=== PATIENT | male | born 1945 | race Caucasian/White ===

== ENCOUNTER 2020-01-06 09:07 | Emergency (ER) | payer MEDICARE, OTHER ==
[~2020-01-06] VITALS: Ht 170.2 cm; Wt 75.7 kg
--- NOTE | 2020-01-06 09:15 | NUR ---
BIB FRIEND C/O SOB STARTED YESTERDAY, -FEVER. PATIENT ASSISTED TO ROOM, CHANGED INTO GOWN, ATTACHED TO THE SURGERY AID. IV LINE ESTABLISHED, BLOOD DRAWN SENT TO LAB. PATIENT WAS ABLE TO GIVE URINE AND SENT.
--- NOTE | 2020-01-06 09:42 | NUR ---
CALLED INTER[employer] MEDIA PROJECT MANAGER CARDIO CHRISTINE AND TEXTED EKG AT 0945.
[2020-01-06] MEDS ORDERED: ASPIRIN 325 MG TABLET ONE (09:43)
[2020-01-06 09:47] LABS: BASOPHILS % (AUTO) 0.2 % (0.0-2.0); EOSINOPHILS % (AUTO) 0.1 % (0.0-6.0); HEMATOCRIT 41 % (39-51); HEMOGLOBIN 13.6 g/dL (13.5-17.5); LYMPHOCYTES # (AUTO) 2.6 /CMM (0.8-4.8); LYMPHOCYTES % (AUTO) 17.2 % (20.0-44.0); MEAN CORPUSCULAR HGB CONC 33 g/dl (31.0-36.0); MEAN CORPUSCULAR VOLUME 90 fL (80-96); MONOCYTES % (AUTO) 6.5 % (2.0-12.0); NEUTROPHILS # (AUTO) 11.4 /CMM (1.8-8.9); PLATELET COUNT (AUTO) 578 /CMM (150-450); RED BLOOD CELL COUNT(AUTO) 4.54 MIL/uL (4.5-6.0)
--- NOTE | 2020-01-06 09:48 | NUR ---
PATIENT DENIES CHEST PAIN AT THIS TIME. PLACED ON O2 AT 2LPM FOR COMFORT.
[2020-01-06 09:49] LABS: APPEARANCE,URINE Clear (CLEAR); BILIRUBIN,URINE SMALL (NEGATIVE); BLOOD, URINE Negative Ery/uL (NEGATIVE); COLOR,URINE Yellow (YELLOW); KETONES,URINE Negative (NEGATIVE); LEUKOCYTE ESTERASE ,URINE Negative (NEGATIVE); NITRITE, URINE Negative (NEGATIVE); PROTEIN,URINE Negative (NEGATIVE); UGLUCOSE Negative (NEGATIVE)
--- NOTE | 2020-01-06 09:50 | NUR ---
[facility] CALLED FOR CODE STEMI,SPOKE WITH RAFFI,MILAN AND EKG SENT TO [phone] REQUESTED
[2020-01-06 09:56] LABS: BACTERIA,URINE Rare /HPF (None Seen); RBC,URINE NONE SEEN /HPF (0-2); SQUAMOUS EPITHELIAL CELL,UR Few /HPF (None Seen); WBC,URINE NONE SEEN /HPF (0-3)
[2020-01-06 10:10] LABS: ALBUMIN 3.2 g/dL (3.4-5.0); ALKALINE PHOSPHATASE 107 U/L (46-116); ASPARTATE AMINOTRANSFERASE 44 U/L (15-37); B-TYPE NATRIURETIC PEPTIDE 30745 PG/ML (0-125); BILIRUBIN,TOTAL 2.7 mg/dL (0.2-1.0); CALCIUM, SERUM 8.8 mg/dL (8.5-10.1); CARBON DIOXIDE 24 mmol/L (21-32); CHLORIDE 89 mmol/L (98-107); CREATININE 2.8 mg/dL (0.6-1.3); GLUCOSE 212 mg/dL (74-106); POTASSIUM 3.3 mmol/L (3.5-5.1); SODIUM SERUM 129 mmol/L (136-145); TOTAL PROTEIN, SERUM 7.8 g/dL (6.4-8.2)
[2020-01-06 10:12] LABS: UREA NITROGEN, BLOOD 99 mg/dL (7-18)
--- NOTE | 2020-01-06 10:17 | NUR ---
CALL BACK FROM [facility], DR MENDES TALKED TO DR BA AND REFUSED TRANSFER
--- NOTE | 2020-01-06 10:20 | NUR ---
[facility] ER CALLED,DR LARRY SPOKE WITH DR BA FOR POSSIBLE TX
[2020-01-06 10:23] LABS: CREATINE KINASE, TOTAL 87 U/L (39-308); FERRITIN 441 ng/mL (8-388)
[2020-01-06] MEDS ORDERED: HEPARIN SODIUM, PORCINE 5000 UNITS/1 ML VIAL ONE (10:26)
[2020-01-06] MEDS ORDERED: HEPARIN SODIUM, PORCINE 5000 UNITS/1 ML VIAL IV ONE (10:30)
[2020-01-06] MEDS ORDERED: ASPIRIN 325 MG TABLET PO ONE (10:30)
--- NOTE | 2020-01-06 10:35 | NUR ---
Fitz vogel in EDM - 01/06/20 at 1237 by LAUREN T'S A STEMI, SUGGESTED TO HAVE ADMISSIONS ASSISTANT CALLED.CALL BACK FROM DR LARRY, ACCEPTED TX BUT SAID THAT THEYT DON'T THINK
[2020-01-06] MEDS ORDERED: FUROSEMIDE 20 MG/2 ML VIAL ONE (10:36)
[2020-01-06] MEDS ORDERED: HEPARIN INFUSION/D5W 500 ML IV ONE (10:36)
--- NOTE | 2020-01-06 10:40 | NUR ---
SPOKE WITH GIUSEPPE NIELSEN SAID THAT ER MD CAN'T ACCEPT AN ER TRANSFER SINCE PATIENT IS NOT A STEMI, DR BA INFORMED
[2020-01-06 10:41] LABS: ALANINE AMINOTRANSFERASE 61 U/L (12-78)
[2020-01-06] MEDS ORDERED: HYDR25TA4 PO (10:49)
[2020-01-06] MEDS ORDERED: AMLO10TA7 PO (10:49)
[2020-01-06] MEDS ORDERED: ALPR0.5T8 PO (10:49)
[2020-01-06 10:52] LABS: D-DIMER 2.93 mg/L(FEU (0.17-0.50)
[2020-01-06] MEDS ORDERED: LEVOFLOXACIN 500 MG /D5W 100ML 100 ML IV ONE (10:56)
[2020-01-06] MEDS ORDERED: LEVOFLOXACIN 500 MG /D5W 100ML 500 MG/100 ML PIGGYBACK IV ONE (11:00)
[2020-01-06] MEDS ORDERED: FUROSEMIDE 20 MG/2 ML VIAL IV ONE ×2 (11:00)
[2020-01-06] MEDS ORDERED: HEPARIN INFUSION/D5W 500 ML IV PRN (11:00)
--- NOTE | 2020-01-06 11:11 | NUR ---
DR BA SPEAKING WITH DR REY
[2020-01-06 11:24] LABS: ABG BASE EXCESS 0.3 mmol/L; ABG OXYGEN SATURATION 96.2 % (92.0-98.5); ABG PCO2 26.8 mmHg (35.0-45.0); ABG PH 7.527 (7.350-7.450); ABG PO2 91.1 mmHg (75.0-100.0); AaDO2 76.9 mmHg; COHb 0.9 % (0.5-1.5); MetHb 0.3 % (0.0-1.5); SITE, ABG Right Radial
--- NOTE | 2020-01-06 12:23 | NUR ---
DR. REY AND DR. KING AT BEDSIDE FOR EVALUATION. PATIENT RESTING, VITALS STABLE, DENIES CHEST PAIN.
[2020-01-06] MEDS ORDERED: ALPRAZOLAM 0.5 MG TABLET PO PRN (12:30)
--- NOTE | 2020-01-06 12:38 | NUR ---
ROOM GIVEN FOR PT 252.
[2020-01-06 12:52] LABS: BILIRUBIN,DIRECT 0.9 mg/dL (0.0-0.2)
--- NOTE | 2020-01-06 13:00 | NUR ---
CALLED [facility] TO HELP WITH TRANSFER PT
--- NOTE | 2020-01-06 13:00 | NUR ---
dr walls called regarding assistance with transfer since patient needs cardiothoracic surgeon
--- NOTE | 2020-01-06 13:00 | NUR ---
PATIENT'S EXAMINED BY DR. KING. Addendum: 01/06/20 at 1429 by ROALCANCES VERIFIED WITH DR. KING IF HEPARIN STILL NEEDS TO BE CONTINUED. PER MD, CONTINUE HEPARIN AT THIS TIME, UNTIL FURTHER ORDER.
--- NOTE | 2020-01-06 13:02 | NUR ---
LACTIC ACID 2.8
[2020-01-06] MEDS ORDERED: FUROSEMIDE 40 MG/4 ML VIAL ONE (13:08)
--- NOTE | 2020-01-06 13:15 | NUR ---
DR. KING WANTS TO TRANSFER TO [facility] AND ASKED TO SPEAK WITH DR. REY. AFTER WHICH DOCTOR CANDIDO DICIDED THAT THE PATIENT WILL REMAIN WITH [facility] AND NOT BE TRANSFER TO [facility].
--- NOTE | 2020-01-06 13:25 | NUR ---
JACQUE FROM [facility],TEL. [phone] AND FAX# [phone]. WANTS FACESHEETY FAXED BUT I TOLD HER THAT DR REY WANTS TO TAKE CARE OF THE TRANSFER SINCE HE IS A [place] PATIENT.
[2020-01-06] MEDS ORDERED: LORAZEPAM INJ 2 MG/ML VIAL IV ONE (13:30)
[2020-01-06] MEDS ORDERED: FUROSEMIDE 40 MG/4 ML VIAL IV ONE (13:30)
[2020-01-06] MEDS ORDERED: LORAZEPAM INJ 2 MG/ML VIAL ONE (13:34)
--- NOTE | 2020-01-06 13:45 | NUR ---
Patient resting, given ice chips, per Dr. Xie, ok to have ice chips at this time. Patient still denies chest pain, vitals stable. Dr. Mao re-evaluated the patient.
--- NOTE | 2020-01-06 13:49 | NUR ---
[facility] INVOICE MACHINE OPERATOR KATELYNLED AND SAID THAT THEY ALREADY GOT THE REQUEST FOR TRANSFER AND ARE WORKING ON IT,SHE WAS UNABLE TO GIVE ME A DIRECT NUMBER TO CALL SINCE THEY ARE WORKING FROM HOME.
--- NOTE | 2020-01-06 13:57 | NUR ---
[employer]OBIN WO[employer] VENEER TAPER PHONE [phone], WORKING ON TRANSFER TO [facility]. NEED TO FAX CLINICALS TO [phone].
--- NOTE | 2020-01-06 14:27 | NUR ---
RECEIVED ORDER FROM DR. BA AND DR. KING TO STOP THE HEPARIN DRIP. ORDER CARRIED OUT.
--- NOTE | 2020-01-06 14:57 | NUR ---
CALL BACK FROM [facility] SPEEDER MACHINE OPERATOR, , WAITING ON DR LEE TO GET A SIGN OUT, [facility] IN [place].
--- NOTE | 2020-01-06 15:30 | NUR ---
PATIENT RESTING, NO DISTRESS NOTED. VITALS STABLE.
--- NOTE | 2020-01-06 17:18 | NUR ---
PER ALEJANDRA HAYS, PT NOT ACCEPTED AT [facility], NEED TO FAX ALL INFO TO [facility] [phone].
--- NOTE | 2020-01-06 17:58 | NUR ---
Spoke to [facility], gave clinicals information, will call us back.
--- NOTE | 2020-01-06 18:05 | NUR ---
PER ALEJANDRA, PATIENT ACCEPTED AT [facility] BY DR. PICKENS. WAITING FOR A BED AVAILABILITY. WILL CALL BACK FOR UPDATES. DR. BLAKELY AWARE.
--- NOTE | 2020-01-06 18:14 | NUR ---
HERIBERTO, FROM [facility], CALLED REQUESTING AN AUTHORIZATION NUMBER FOR PT'S TRANSFER. HERIBERTO WAS DIRECTED TO CONTACT THE ARCHITECTURE INSTRUCTOR, ALEJANDRA, AT .
--- NOTE | 2020-01-06 18:45 | NUR ---
RECEIVED CALL DROM [facility], CURRENTLY NO CAPACITY FOR THIS PATIENT.
--- NOTE | 2020-01-06 18:50 | NUR ---
PER ALEJANDRA JAMES CM, PATIENT [facility] ROOM 5321 PHONE NUMBER FOR REPORT [phone] WILL CALL BACK FOR TRANSPORTATION INFO.
--- NOTE | 2020-01-06 19:02 | NUR ---
REPORT GIVEN TO MARY SHRESTHA AT [facility].
--- NOTE | 2020-01-06 19:13 | NUR ---
ENDORSED TO MARY SHRSETHA
--- NOTE | 2020-01-06 19:14 | NUR ---
REPORT REC'D FROM [place] FOR [facility].
--- NOTE | 2020-01-06 19:23 | NUR ---
ETA 2029 [facility]
[2020-01-06] MEDS ORDERED: LORAZEPAM 0.5 MG TABLET ONE (19:43)
--- NOTE | 2020-01-06 19:50 | NUR ---
PT WAS C/O FEELING ANXIOUS. NOTIFIED. NEW ORDERS GIVEN AND CARRIED OUT.
[2020-01-06] MEDS ORDERED: LORAZEPAM 0.5 MG TABLET PO ONE (20:00)
--- NOTE | 2020-01-06 20:39 | NUR ---
PT'S BARBRA ADAMS, CALLED AND IS SPEAKING TO DR BLAKELY WHO IS GIVING HIS ANGIE AN UPDATE, PER PT'S REQUEST. PT IS STILL FEELING ANXIOUS.
--- NOTE | 2020-01-06 20:39 | NUR ---
CALLED [facility] FOR UPDATE, NEW ETA 60-90 MINUTE DELAY
--- NOTE | 2020-01-06 20:44 | NUR ---
CALLED [facility] GOYAL 90+ MINUTES. DID NOT SET UP TRANSPORTATION
--- NOTE | 2020-01-06 20:45 | NUR ---
[facility] ETA 2129
--- NOTE | 2020-01-06 20:47 | NUR ---
PT WAS NOTIFIED THAT THE AMBULANCE IS RUNNING LATE.
--- NOTE | 2020-01-06 21:07 | NUR ---
SPOKE WITH PAU FROM [facility] AND INFORMED OF DELAYED ETA. REQUESTING TO CALL BACK WHEN PT IS PICKED UP.
--- NOTE | 2020-01-06 21:12 | NUR ---
PT APPEARS TO BE RESTING COMFORTABLY. PT IS SLIGHTLY ANXIOUS. VSS. WILL CONTINUE TO MONITOR THE PT.
[2020-01-06 21:27] VITALS: BP 102/72
--- NOTE | 2020-01-06 21:38 | NUR ---
[facility] ARRIVED. PT IS BEING TRANSPORTED TO [facility]. VSS. [facility] NOTIFIED THAT PT WILL BE THER IN 45 MINS. COPY OF CHART AND IMAGING FINDINGS & DISK GIVEN.
--- NOTE | 2020-01-06 23:41 | NUR ---
PT'S BELONGINGS FOUND BEHIND PRABHAKAR. SPOKE WITH PT'S NIECE BARBRA, SHE WILL COME TO PICK IT UP TOMORROW. WILL LOCK BELONGINGS IN PATIENT LOCKER.
== END 2020-01-06 21:43 | disposition short-term general hospital (02) ==
LOC: ER 09:08
DX: I21.4 Non-ST elevation (NSTEMI) myocardial infarction (principal); I11.0 Hypertensive heart disease with heart failure; I50.9 Heart failure, unspecified; E87.2 Acidosis; N17.8 Other acute kidney failure; N17.9 Acute kidney failure, unspecified; E87.6 Hypokalemia; I23.2 Ventricular septal defect as current complication following acute myocardial infarction; F41.9 Anxiety disorder, unspecified; Z79.899 Other long term (current) drug therapy; Z88.0 Allergy status to penicillin; Z20.828 Contact with and (suspected) exposure to other viral communicable diseases; R06.02 Shortness of breath
CPT/HCPCS: 36415; 36600 ×2; 71045; 80053; 81001; 82248; 82550; 82728; 82803; 83605 ×2; 83615; 83880 ×2; 84145; 84484 ×3; 85025; 85378; 85730; 87040 ×2; 87081; 93005 ×2; 93307; 93308; 96365 ×2; 96366; 96375; 96376 ×2; 99291; J1644 ×2; J1940 ×2; J1956; J2060; 81000-TC; U0003-CS